=== PATIENT | male | born 1950 | race Caucasian/White ===

== ENCOUNTER → 2020-03-26 11:58 | Outpatient (BNVA) | payer MEDICARE, OTHER, SELFPAY | PROVIDERS: PCP Nurse Practitioner; Visit Provider Nurse Practitioner | DX: E11.65 Type 2 diabetes mellitus with hyperglycemia (principal); I10 Essential (primary) hypertension | CPT/HCPCS: 80053; 80061; 81000; 82044; 83036 ==

== ENCOUNTER 2020-09-06 09:45 | Outpatient (CLI) | payer MEDICARE, OTHER, SELFPAY ==
--- NOTE | 2020-09-06 09:30 | USCV_ITS ---
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
== END 2020-09-06 09:46 | disposition home or self-care (01) ==
LOC: RAD 09:51
PROVIDERS: PCP Nurse Practitioner; Visit Provider Internal Medicine
DX: R29.898 Other symptoms and signs involving the musculoskeletal system (principal)
CPT/HCPCS: 93922

== ENCOUNTER → 2020-09-27 09:11 | Outpatient (BNVA) | payer MEDICARE, OTHER, SELFPAY | PROVIDERS: PCP Nurse Practitioner; Visit Provider Nurse Practitioner | DX: E11.65 Type 2 diabetes mellitus with hyperglycemia (principal) | CPT/HCPCS: 80053; 80061; 83036; 84443 ==

== ENCOUNTER → 2021-02-08 08:37 | Outpatient (BNVA) | payer MEDICARE, OTHER, SELFPAY | PROVIDERS: PCP Nurse Practitioner; Visit Provider Nurse Practitioner | DX: E11.65 Type 2 diabetes mellitus with hyperglycemia (principal); E55.9 Vitamin D deficiency, unspecified; I10 Essential (primary) hypertension; E66.01 Morbid (severe) obesity due to excess calories | CPT/HCPCS: 80053; 80061; 82043; 82306; 82607; 83036 ==

== ENCOUNTER → 2021-05-30 12:03 | Outpatient (BNVA) | payer MEDICARE, OTHER, SELFPAY | PROVIDERS: PCP Nurse Practitioner; Visit Provider Nurse Practitioner Family | DX: Z20.822 Contact with and (suspected) exposure to COVID-19 (principal); B02.9 Zoster without complications | CPT/HCPCS: 87635 ==

== ENCOUNTER 2021-06-10 14:35 | Outpatient (CLI) | payer MEDICARE, OTHER, SELFPAY ==
--- NOTE | 2021-06-10 14:49 | XR_ITS ---
WS: [id number] Lumbar spine, 3 views, 06/10/2021 Clinical Data: M54.5 - Low back pain Comparison: None. Findings: No compression fractures are seen. There is bilateral L5-S1 spondylolysis with a 1.7 cm spondylolisth esis. There is degenerative disc narrowing at L5-S1. The transverse processes and SI joints are kiki l. XR/XR lumbar spine 2-3V* [id number] Impression: 1. Bilateral L5-S1 spondylolysis with a 1.7 cm spondylolisthesis. 2. Degenerative disc narrowing at L5-S1.
--- NOTE | 2021-06-10 14:49 | XR_ITS ---
WS: [id number] Thoracic spine, 3 views, 06/10/2021 Clinical Data: M54.5 - Low back pain Comparison: None. Findings: No compression fractures are seen. The disc heights are normal. Osteoarthritic changes of the thoracic spine are moderate. The paravertebral regions are normal. XR/XR thoracic spine 3V* [id number] Impression: Moderate osteoarthritis of the thoracic vertebral bodies.
== END 2021-06-10 14:36 | disposition home or self-care (01) ==
PROVIDERS: PCP Nurse Practitioner; Visit Provider Nurse Practitioner
DX: M79.605 Pain in left leg (principal); M47.814 Spondylosis without myelopathy or radiculopathy, thoracic region; M43.17 Spondylolisthesis, lumbosacral region
CPT/HCPCS: 72072; 72100

== ENCOUNTER → 2021-06-23 15:44 | Outpatient (BNVA) | payer MEDICARE, OTHER, SELFPAY | PROVIDERS: PCP Nurse Practitioner; Referring Provider Nurse Practitioner; Visit Provider Orthopaedic Surgery | DX: M51.36 Other intervertebral disc degeneration, lumbar region (principal); M54.9 Dorsalgia, unspecified; M48.062 Spinal stenosis, lumbar region with neurogenic claudication | CPT/HCPCS: 72120 ==

== ENCOUNTER 2021-07-01 11:27 | Outpatient (CLI) | payer MEDICARE, OTHER, SELFPAY ==
--- NOTE | 2021-07-01 11:45 | MR_ITS ---
WS: [id number] MRI LUMBAR SPINE NONCONTRAST HISTORY: Lifting injury 2 weeks ago. Low back pain radiating down LEFT leg. COMPARISON: None available. TECHNIQUE: Sagittal and axial multisequence imaging is submitted. Increase in the thoracic kyphosis. Disc bulges and protrusions throughout the thoracic spine. Disc pr otrusions at T6-7 and T7-8 contact the ventral thoracic cord. L5 anterolisthesis by 8 mm with bilateral pars defects at L5. Moderate degenerative disc space narrow ing at L5-S1. The remaining disc spaces are well preserved. No acute fractures or marrow edema. Conus terminates normally at L1-2 disc level. L1-L2: Normal. L2-L3: Mild bilateral facet joint arthritis, LEFT greater than RIGHT with no stenosis. L3-L4: Mild annular disc bulging with no focal protrusion. Bilateral ligamentum flavum disease and fa cet arthritis. Fluid in the facet joints bilaterally. Very mild narrowing of the LEFT subarticular re cess and LEFT foramen. Fluid in the facet joints bilaterally. L4-L5: Mild annular disc bulging and osteophytic ridging. Bilateral facet joint arthritis and ligamen bambi flavum hypertrophy. Fluid in the facet joints bilaterally. Mild bilateral foraminal narrowing. L5-S1: Disc and facet joint arthropathies encroaching into the thecal sac and lateral recesses. There is disc and osteophyte material contacting the thecal sac and the S1 nerve roots bilaterally but gre atest on the RIGHT. Mild central stenosis. Bilateral lateral recess stenosis with encroachment upon t he S1 nerve root and moderate bilateral subarticular recess and foraminal stenosis, LEFT greater than RIGHT. MR/MR lumbar spine wo con* [id number] IMPRESSION: 1. Grade 1 spondylolisthesis with spondylolysis at L5. 2. Disc and osteophyte encroachment upon the S1 nerve roots bilaterally with m ild central stenosis. 3. Moderate bilateral subarticular recess and foraminal stenosis at L5-S1, LEF T greater than RIGHT with disc and osteophyte encroachment upon the L5 and S1 n erve roots. 4. Mild LEFT subarticular recess and LEFT foraminal stenosis at L3-4. 5. Mild bilateral foraminal narrowing at L4-5.
== END 2021-07-01 11:28 | disposition home or self-care (01) ==
LOC: RADSHAW 11:33
PROVIDERS: PCP Nurse Practitioner; Visit Provider Orthopaedic Surgery
DX: M51.36 Other intervertebral disc degeneration, lumbar region (principal); M54.5 Low back pain; M54.16 Radiculopathy, lumbar region; M43.16 Spondylolisthesis, lumbar region; M47.816 Spondylosis without myelopathy or radiculopathy, lumbar region; M25.78 Osteophyte, vertebrae; M48.07 Spinal stenosis, lumbosacral region; M48.061 Spinal stenosis, lumbar region without neurogenic claudication
CPT/HCPCS: 72148

== ENCOUNTER → 2021-09-26 08:14 | Outpatient (BNVA) | payer MEDICARE, OTHER, SELFPAY | PROVIDERS: PCP Nurse Practitioner; Referring Provider Orthopaedic Surgery; Visit Provider Specialist | DX: E11.44 Type 2 diabetes mellitus with diabetic amyotrophy (principal); E11.42 Type 2 diabetes mellitus with diabetic polyneuropathy; G57.22 Lesion of femoral nerve, left lower limb; M48.062 Spinal stenosis, lumbar region with neurogenic claudication | CPT/HCPCS: 95886; 95909; 99204; 99214 ==

== ENCOUNTER → 2021-09-27 09:12 | Outpatient (BNVA) | payer MEDICARE, OTHER, SELFPAY | PROVIDERS: PCP Nurse Practitioner; Visit Provider Nurse Practitioner | DX: E11.65 Type 2 diabetes mellitus with hyperglycemia (principal) | CPT/HCPCS: 80053; 80061; 82043; 83036 ==

== ENCOUNTER 2021-11-25 09:23 | Outpatient (RCR) | payer MEDICARE, OTHER, SELFPAY | END 2021-11-28 23:59 | disposition home or self-care (01) | LOC: APT 09:23 | PROVIDERS: PCP Nurse Practitioner; Visit Provider Specialist | DX: E11.44 Type 2 diabetes mellitus with diabetic amyotrophy (principal) | CPT/HCPCS: 97163 ==

== ENCOUNTER → 2021-11-28 09:05 | Outpatient (BNVA) | payer MEDICARE, OTHER, SELFPAY | PROVIDERS: PCP Nurse Practitioner; Visit Provider Specialist | DX: G95.89 Other specified diseases of spinal cord (principal); B02.8 Zoster with other complications; G60.9 Hereditary and idiopathic neuropathy, unspecified | CPT/HCPCS: 99213 ==

== ENCOUNTER 2021-11-29 06:00 | Outpatient (RCR) | payer MEDICARE, OTHER, SELFPAY | END 2021-12-26 23:59 | disposition home or self-care (01) | LOC: APT 06:00 | PROVIDERS: PCP Nurse Practitioner; Visit Provider Specialist | DX: E11.44 Type 2 diabetes mellitus with diabetic amyotrophy (principal) | CPT/HCPCS: 97110; 97140 ==

== ENCOUNTER 2021-12-27 06:00 | Outpatient (RCR) | payer MEDICARE, OTHER, SELFPAY | END 2022-01-06 23:59 | disposition home or self-care (01) | LOC: APT 06:00 | PROVIDERS: PCP Nurse Practitioner; Visit Provider Specialist | DX: E11.44 Type 2 diabetes mellitus with diabetic amyotrophy (principal) | CPT/HCPCS: 97110; 97140 ==

== ENCOUNTER → 2022-02-22 13:31 | Outpatient (BNVA) | payer MEDICARE, OTHER, SELFPAY | PROVIDERS: PCP Nurse Practitioner; Visit Provider Internal Medicine Cardiovascular Disease | DX: I10 Essential (primary) hypertension (principal); Z87.891 Personal history of nicotine dependence | CPT/HCPCS: 99213; 99214 ==

== ENCOUNTER → 2022-03-01 10:27 | Outpatient (BNVA) | payer MEDICARE, OTHER, SELFPAY | PROVIDERS: PCP Nurse Practitioner; Visit Provider Specialist | DX: G60.9 Hereditary and idiopathic neuropathy, unspecified (principal); B02.8 Zoster with other complications; G95.9 Disease of spinal cord, unspecified; Z87.891 Personal history of nicotine dependence | CPT/HCPCS: 99214 ==

== ENCOUNTER 2022-03-21 09:00 | Outpatient (CLI) | payer MEDICARE, OTHER, SELFPAY ==
--- NOTE | 2022-03-21 09:09 | MR_ITS ---
WS: [id number] MRI LUMBAR SPINE WITH CONTRAST TECHNIQUE: Sagittal T1, T2 and STIR imaging. Axial T1 and T2 imaging. Post gadolinium imaging was obt ained. CLINICAL INFORMATION: G95.9 - Disease of spinal cord, unspecified COMPARISON: MRI July 01, 2021 FINDINGS: Grade 1 anterolisthesis L5 on S1 with chronic spondylolysis. Grade 1 anterolisthesis L5 on S1 measuri ng 8 mm not significantly changed. Disc space narrowing T11-T12 in the lower thoracic spine with endp late degenerative changes. This is similar to previous. No high-grade central canal stenosis. L1-L2: Normal. L2-L3: No significant disc bulging. Moderate facet arthropathy. Spinal canal and foramen are patent. L3-L4: Mild annular bulging. Moderate facet arthropathy. Spinal canal is patent. Mild RIGHT foraminal narrowing with a tiny RIGHT foraminal protrusion. L4-L5: Mild annular bulging. Slight effacement of ventral thecal sac. Moderate facet arthropathy. For amen are patent. L5-S1: Grade 1 anterolisthesis L5 on S1 with chronic spondylolysis. Moderate bilateral foraminal narr owing with impingement on the exiting L5 nerve roots LEFT greater than RIGHT. This is similar to prev ious. Mild central canal stenosis seen on the life claims examiner imaging of the cervical spine C3-C6. MR/MR lumbar spine wo/w con [id number] IMPRESSION: 1. Mild lumbar curve. No acute compression. No high-grade central canal stenos is. 2. Grade 1 anterolisthesis L5 on S1 measuring 8 mm not significantly changed c ompared to previous with chronic spondylolysis. 3. Moderate bilateral L5-S1 bony foraminal narrowing LEFT greater than RIGHT w ith contact of the exiting LEFT greater than RIGHT L5 nerve roots. 4. Tiny RIGHT foraminal protrusion L3-L4 with mild RIGHT foraminal narrowing. 5. Moderate facet arthropathy L3-L4 and L4-L5. 6. No other significant changes compared to previous.
[2022-03-21] MEDS: gadobenate dimeglumine 20 mL vial IV (17:02)
== END 2022-03-21 09:01 | disposition home or self-care (01) ==
LOC: RAD 09:01
PROVIDERS: PCP Nurse Practitioner; Visit Provider Specialist
DX: G95.9 Disease of spinal cord, unspecified (principal); M48.062 Spinal stenosis, lumbar region with neurogenic claudication; M51.36 Other intervertebral disc degeneration, lumbar region; M48.07 Spinal stenosis, lumbosacral region; M51.26 Other intervertebral disc displacement, lumbar region; M47.816 Spondylosis without myelopathy or radiculopathy, lumbar region
CPT/HCPCS: 72158

== ENCOUNTER → 2022-05-02 08:42 | Outpatient (BNVA) | payer MEDICARE, OTHER, SELFPAY | PROVIDERS: PCP Nurse Practitioner; Visit Provider Nurse Practitioner | DX: E11.65 Type 2 diabetes mellitus with hyperglycemia (principal); I10 Essential (primary) hypertension; M51.36 Other intervertebral disc degeneration, lumbar region; E11.44 Type 2 diabetes mellitus with diabetic amyotrophy | CPT/HCPCS: 80053; 80061; 83036 ==

== ENCOUNTER → 2022-08-03 13:52 | Outpatient (BNVA) | payer MEDICARE, OTHER, SELFPAY | PROVIDERS: PCP Nurse Practitioner; Visit Provider Internal Medicine | DX: I10 Essential (primary) hypertension (principal); G60.9 Hereditary and idiopathic neuropathy, unspecified; B02.8 Zoster with other complications; E66.01 Morbid (severe) obesity due to excess calories; Z68.39 Body mass index [BMI] 39.0-39.9, adult; E11.65 Type 2 diabetes mellitus with hyperglycemia; Z79.84 Long term (current) use of oral hypoglycemic drugs; Z87.891 Personal history of nicotine dependence | CPT/HCPCS: 99213; 99214 ==

== ENCOUNTER → 2022-09-04 09:54 | Outpatient (BNVA) | payer MEDICARE, OTHER, SELFPAY | PROVIDERS: PCP Nurse Practitioner; Visit Provider Specialist | DX: G60.9 Hereditary and idiopathic neuropathy, unspecified (principal); M48.062 Spinal stenosis, lumbar region with neurogenic claudication; M51.36 Other intervertebral disc degeneration, lumbar region; M43.17 Spondylolisthesis, lumbosacral region; M21.969 Unspecified acquired deformity of unspecified lower leg; E11.9 Type 2 diabetes mellitus without complications | CPT/HCPCS: 99214 ==

== ENCOUNTER → 2022-10-04 08:16 | Outpatient (BNVA) | payer MEDICARE, OTHER, SELFPAY | PROVIDERS: PCP Nurse Practitioner; Visit Provider Nurse Practitioner | DX: E11.65 Type 2 diabetes mellitus with hyperglycemia (principal); I10 Essential (primary) hypertension | CPT/HCPCS: 80053; 80061; 83036; 84443 ==

== ENCOUNTER → 2022-12-19 08:23 | Outpatient (BNVA) | payer MEDICARE, OTHER, SELFPAY | PROVIDERS: PCP Nurse Practitioner; Visit Provider Podiatrist Foot & Ankle Surgery | DX: E11.42 Type 2 diabetes mellitus with diabetic polyneuropathy (principal); M20.41 Other hammer toe(s) (acquired), right foot; M20.42 Other hammer toe(s) (acquired), left foot; L84 Corns and callosities; M20.31 Hallux varus (acquired), right foot; M20.32 Hallux varus (acquired), left foot; B35.1 Tinea unguium; M24.573 Contracture, unspecified ankle | CPT/HCPCS: 11056; 11721 ==

== ENCOUNTER → 2023-03-06 08:15 | Outpatient (BNVA) | payer MEDICARE, OTHER, SELFPAY | PROVIDERS: PCP Nurse Practitioner; Visit Provider Podiatrist Foot & Ankle Surgery | DX: E11.42 Type 2 diabetes mellitus with diabetic polyneuropathy (principal); L84 Corns and callosities; B35.1 Tinea unguium; E11.44 Type 2 diabetes mellitus with diabetic amyotrophy; M20.31 Hallux varus (acquired), right foot; M20.32 Hallux varus (acquired), left foot; M20.41 Other hammer toe(s) (acquired), right foot; M20.42 Other hammer toe(s) (acquired), left foot; S90.861A Insect bite (nonvenomous), right foot, initial encounter; W57.XXXA Bitten or stung by nonvenomous insect and other nonvenomous arthropods, initial encounter; M24.572 Contracture, left ankle | CPT/HCPCS: 11056; 11721 ==

== ENCOUNTER → 2023-04-05 08:45 | Outpatient (BNVA) | payer MEDICARE, OTHER, SELFPAY | PROVIDERS: PCP Nurse Practitioner; Visit Provider Nurse Practitioner | DX: E11.65 Type 2 diabetes mellitus with hyperglycemia (principal); I10 Essential (primary) hypertension; E55.9 Vitamin D deficiency, unspecified; S90.861A Insect bite (nonvenomous), right foot, initial encounter; W57.XXXA Bitten or stung by nonvenomous insect and other nonvenomous arthropods, initial encounter; M51.36 Other intervertebral disc degeneration, lumbar region; E11.44 Type 2 diabetes mellitus with diabetic amyotrophy; E11.40 Type 2 diabetes mellitus with diabetic neuropathy, unspecified | CPT/HCPCS: 80053; 80061; 81000; 82043; 82306; 82607; 83036; 85025; 86618; 86666; 86757 ==

== ENCOUNTER → 2023-05-03 13:12 | Outpatient (BNVA) | payer MEDICARE, OTHER, SELFPAY | PROVIDERS: PCP Nurse Practitioner; Visit Provider Internal Medicine | DX: G60.9 Hereditary and idiopathic neuropathy, unspecified (principal); B02.8 Zoster with other complications; E66.01 Morbid (severe) obesity due to excess calories; Z68.41 Body mass index [BMI] 40.0-44.9, adult; E11.65 Type 2 diabetes mellitus with hyperglycemia; Z79.84 Long term (current) use of oral hypoglycemic drugs; I10 Essential (primary) hypertension | CPT/HCPCS: 99214 ==

== ENCOUNTER → 2023-05-22 08:39 | Outpatient (BNVA) | payer MEDICARE, OTHER, SELFPAY | PROVIDERS: PCP Nurse Practitioner; Visit Provider Podiatrist Foot & Ankle Surgery | DX: E11.44 Type 2 diabetes mellitus with diabetic amyotrophy (principal); B35.1 Tinea unguium; L84 Corns and callosities; M20.41 Other hammer toe(s) (acquired), right foot; M20.42 Other hammer toe(s) (acquired), left foot; M20.31 Hallux varus (acquired), right foot; M20.32 Hallux varus (acquired), left foot; M24.573 Contracture, unspecified ankle | CPT/HCPCS: 11055; 11721 ==

== ENCOUNTER → 2023-07-24 10:02 | Outpatient (BNVA) | payer MEDICARE, OTHER, SELFPAY | PROVIDERS: PCP Nurse Practitioner; Visit Provider Podiatrist Foot & Ankle Surgery | DX: E11.44 Type 2 diabetes mellitus with diabetic amyotrophy (principal); M20.41 Other hammer toe(s) (acquired), right foot; M20.42 Other hammer toe(s) (acquired), left foot; M20.31 Hallux varus (acquired), right foot; M20.32 Hallux varus (acquired), left foot; B35.1 Tinea unguium; L97.512 Non-pressure chronic ulcer of other part of right foot with fat layer exposed; E11.621 Type 2 diabetes mellitus with foot ulcer | CPT/HCPCS: 11042; 11721 ==

== ENCOUNTER → 2023-08-08 13:25 | Outpatient (BNVA) | payer MEDICARE, OTHER, SELFPAY | PROVIDERS: PCP Nurse Practitioner; Visit Provider Podiatrist Foot & Ankle Surgery | DX: E11.44 Type 2 diabetes mellitus with diabetic amyotrophy (principal); L97.522 Non-pressure chronic ulcer of other part of left foot with fat layer exposed; M20.41 Other hammer toe(s) (acquired), right foot; M20.42 Other hammer toe(s) (acquired), left foot; E11.621 Type 2 diabetes mellitus with foot ulcer | CPT/HCPCS: 99213 ==

== ENCOUNTER → 2023-08-22 11:27 | Outpatient (BNVA) | payer MEDICARE, OTHER, SELFPAY | PROVIDERS: PCP Nurse Practitioner; Visit Provider Podiatrist Foot & Ankle Surgery | DX: E11.44 Type 2 diabetes mellitus with diabetic amyotrophy (principal); L97.522 Non-pressure chronic ulcer of other part of left foot with fat layer exposed; E11.621 Type 2 diabetes mellitus with foot ulcer | CPT/HCPCS: 99213 ==

== ENCOUNTER → 2023-10-10 10:46 | Outpatient (BNVA) | payer MEDICARE, OTHER, SELFPAY | PROVIDERS: PCP Nurse Practitioner; Visit Provider Podiatrist Foot & Ankle Surgery | DX: E11.44 Type 2 diabetes mellitus with diabetic amyotrophy (principal); L60.3 Nail dystrophy; L84 Corns and callosities; L97.522 Non-pressure chronic ulcer of other part of left foot with fat layer exposed; E11.621 Type 2 diabetes mellitus with foot ulcer | CPT/HCPCS: 11055; 11721 ==

== ENCOUNTER → 2023-11-15 13:26 | Outpatient (BNVA) | payer MEDICARE, OTHER, SELFPAY | PROVIDERS: PCP Nurse Practitioner; Visit Provider Nurse Practitioner | DX: M51.36 Other intervertebral disc degeneration, lumbar region (principal); E11.65 Type 2 diabetes mellitus with hyperglycemia; I10 Essential (primary) hypertension; E55.9 Vitamin D deficiency, unspecified; R41.3 Other amnesia; E11.44 Type 2 diabetes mellitus with diabetic amyotrophy; R42 Dizziness and giddiness | CPT/HCPCS: 80053; 80061; 82306; 82607; 83036; 84443; 85025 ==

== ENCOUNTER 2023-12-03 08:39 | Outpatient (CLI) | payer MEDICARE, OTHER, SELFPAY ==
--- NOTE | 2023-12-03 08:30 | CT_ITS ---
WS: [id number] CT HEAD NONCONTRAST HISTORY: R41.3 - Other amnesia TECHNIQUE: Contiguous axial imaging performed through the brain in 2.5 mm imaging. Bone and soft tiss ue windows. Sagittal and coronal reformats reviewed. All CT scans at [facility] use at least one of these dose optimization techniques: automated exposure control; mA and/or kV adjustment per pa tient size (includes targeted exams where dose is matched to clinical indication); or iterative recon struction. DLP: 1241.08 mGy.cm COMPARISON: None available. No acute intracranial hemorrhage, midline shift or mass effect. Mild bilateral symmetric atrophy and small vessel ischemic disease. There are a few small lacunar inf arcts versus perivascular spaces along the basal ganglia. Mild bilateral cerebellar atrophy. Ventricles: Normal size with no hydrocephalus. Paranasal sinuses: As visualized are clear. Mastoid air cells: Well pneumatized. Calvarium and scalp: Skull is intact with no soft tissue edema or swelling. IMPRESSION: 1. No acute intracranial hemorrhage or edema. 2. Mild symmetric cerebral and cerebellar atrophy. Mild small vessel ischemic disease. 3. No ventriculomegaly.
== END 2023-12-03 08:40 | disposition home or self-care (01) ==
LOC: RAD 08:39
PROVIDERS: PCP Nurse Practitioner; Visit Provider Nurse Practitioner
DX: R41.3 Other amnesia (principal); I67.89 Other cerebrovascular disease
CPT/HCPCS: 70450

== ENCOUNTER → 2024-01-31 13:54 | Outpatient (BNVA) | payer MEDICARE, OTHER, SELFPAY | PROVIDERS: PCP Nurse Practitioner; Visit Provider Internal Medicine | DX: G60.9 Hereditary and idiopathic neuropathy, unspecified (principal); B02.8 Zoster with other complications; E66.01 Morbid (severe) obesity due to excess calories; E11.65 Type 2 diabetes mellitus with hyperglycemia; I10 Essential (primary) hypertension; Z68.39 Body mass index [BMI] 39.0-39.9, adult | CPT/HCPCS: 99214 ==

== ENCOUNTER → 2024-02-05 08:29 | Outpatient (BNVA) | payer MEDICARE, OTHER, SELFPAY | PROVIDERS: PCP Nurse Practitioner; Visit Provider Nurse Practitioner | DX: E11.65 Type 2 diabetes mellitus with hyperglycemia (principal); I10 Essential (primary) hypertension | CPT/HCPCS: 80053; 83036; 84439; 84443; 84481 ==

== ENCOUNTER → 2024-02-12 08:59 | Outpatient (BNVA) | payer MEDICARE, OTHER, SELFPAY | PROVIDERS: PCP Nurse Practitioner; Visit Provider Podiatrist Foot & Ankle Surgery | DX: E11.44 Type 2 diabetes mellitus with diabetic amyotrophy (principal); L60.3 Nail dystrophy; L84 Corns and callosities | CPT/HCPCS: 11056; 11721 ==

== ENCOUNTER → 2024-05-13 09:31 | Outpatient (BNVA) | payer MEDICARE, OTHER, SELFPAY | PROVIDERS: PCP Nurse Practitioner; Visit Provider Podiatrist Foot & Ankle Surgery | DX: E11.44 Type 2 diabetes mellitus with diabetic amyotrophy (principal); L60.3 Nail dystrophy; L84 Corns and callosities | CPT/HCPCS: 11056; 11721 ==

== ENCOUNTER → 2024-07-24 15:22 | Outpatient (BNVA) | payer MEDICARE, OTHER, SELFPAY | PROVIDERS: PCP Nurse Practitioner; Visit Provider Nurse Practitioner | DX: E11.44 Type 2 diabetes mellitus with diabetic amyotrophy (principal); M21.272 Flexion deformity, left ankle and toes; M77.52 Other enthesopathy of left foot and ankle | CPT/HCPCS: 73630; 80053; 80061; 83036; 85025 ==

== ENCOUNTER → 2024-08-12 09:21 | Outpatient (BNVA) | payer MEDICARE, OTHER, SELFPAY | PROVIDERS: PCP Nurse Practitioner; Visit Provider Podiatrist Foot & Ankle Surgery | DX: E11.44 Type 2 diabetes mellitus with diabetic amyotrophy (principal); L60.3 Nail dystrophy; L84 Corns and callosities; E11.621 Type 2 diabetes mellitus with foot ulcer; L97.522 Non-pressure chronic ulcer of other part of left foot with fat layer exposed | CPT/HCPCS: 11042; 11055; 11721 ==

== ENCOUNTER → 2024-08-25 09:30 | Outpatient (BNVA) | payer MEDICARE, OTHER, SELFPAY | PROVIDERS: PCP Nurse Practitioner; Visit Provider Podiatrist Foot & Ankle Surgery | DX: E11.44 Type 2 diabetes mellitus with diabetic amyotrophy (principal); L60.3 Nail dystrophy; L84 Corns and callosities; E11.621 Type 2 diabetes mellitus with foot ulcer; L97.522 Non-pressure chronic ulcer of other part of left foot with fat layer exposed | CPT/HCPCS: 99213 ==

== ENCOUNTER → 2024-10-13 09:15 | Outpatient (BNVA) | payer MEDICARE, OTHER, SELFPAY | PROVIDERS: PCP Nurse Practitioner; Visit Provider Podiatrist Foot & Ankle Surgery | DX: L97.512 Non-pressure chronic ulcer of other part of right foot with fat layer exposed (principal); E11.8 Type 2 diabetes mellitus with unspecified complications; E11.44 Type 2 diabetes mellitus with diabetic amyotrophy; L60.3 Nail dystrophy; M20.41 Other hammer toe(s) (acquired), right foot; M20.42 Other hammer toe(s) (acquired), left foot; M24.575 Contracture, left foot; M20.31 Hallux varus (acquired), right foot; M20.32 Hallux varus (acquired), left foot; M24.574 Contracture, right foot; E11.621 Type 2 diabetes mellitus with foot ulcer | CPT/HCPCS: 99213 ==

== ENCOUNTER 2024-10-23 09:50 | Outpatient (CLI) | payer MEDICARE, OTHER, SELFPAY ==
--- NOTE | 2024-10-23 10:15 | USCV_ITS ---
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 Normal resting KHUSHBOO and TBI on the left side. 2. Abnormal resting KHUSHBOO and TBI on the right side suggestive of moderate peripheral arterial disease Compared to the study from 09/06/2020 there is a significant decline in the resting KHUSHBOO and TBI on the right side Dr Michael Ornelas MD [facility] (Electronically Signed) Final Date: 23 October 2024 15:17 S
== END 2024-10-23 09:51 | disposition home or self-care (01) ==
PROVIDERS: PCP Nurse Practitioner; Visit Provider Podiatrist Foot & Ankle Surgery
DX: I70.235 Atherosclerosis of native arteries of right leg with ulceration of other part of foot (principal); L97.512 Non-pressure chronic ulcer of other part of right foot with fat layer exposed
CPT/HCPCS: 93922

== ENCOUNTER → 2024-11-03 11:00 | Outpatient (BNVA) | payer MEDICARE, OTHER, SELFPAY | PROVIDERS: PCP Nurse Practitioner; Visit Provider Podiatrist Foot & Ankle Surgery | DX: E11.44 Type 2 diabetes mellitus with diabetic amyotrophy (principal); L60.3 Nail dystrophy; M20.41 Other hammer toe(s) (acquired), right foot; M20.42 Other hammer toe(s) (acquired), left foot; M24.575 Contracture, left foot; M20.31 Hallux varus (acquired), right foot; M20.32 Hallux varus (acquired), left foot; M24.574 Contracture, right foot | CPT/HCPCS: 99213 ==

== ENCOUNTER → 2024-11-13 11:10 | Outpatient (BNVA) | payer MEDICARE, OTHER, SELFPAY | PROVIDERS: PCP Nurse Practitioner; Visit Provider Podiatrist Foot & Ankle Surgery | DX: E11.44 Type 2 diabetes mellitus with diabetic amyotrophy (principal); L60.3 Nail dystrophy; M20.41 Other hammer toe(s) (acquired), right foot; M20.42 Other hammer toe(s) (acquired), left foot; M24.575 Contracture, left foot; M20.31 Hallux varus (acquired), right foot; M20.32 Hallux varus (acquired), left foot; M24.574 Contracture, right foot | CPT/HCPCS: 99213 ==

== ENCOUNTER → 2024-11-26 15:00 | Outpatient (BNVA) | payer MEDICARE, OTHER, SELFPAY | PROVIDERS: PCP Nurse Practitioner; Visit Provider Nurse Practitioner | DX: E11.9 Type 2 diabetes mellitus without complications (principal) | CPT/HCPCS: 80053; 83036 ==

== ENCOUNTER → 2024-11-27 11:18 | Outpatient (BNVA) | payer MEDICARE, OTHER, SELFPAY | PROVIDERS: PCP Nurse Practitioner; Visit Provider Podiatrist Foot & Ankle Surgery | DX: E11.44 Type 2 diabetes mellitus with diabetic amyotrophy (principal); L60.3 Nail dystrophy; M20.41 Other hammer toe(s) (acquired), right foot; M20.42 Other hammer toe(s) (acquired), left foot; M24.575 Contracture, left foot; M20.31 Hallux varus (acquired), right foot; M20.32 Hallux varus (acquired), left foot; M24.574 Contracture, right foot | CPT/HCPCS: 99213 ==

== ENCOUNTER → 2024-12-15 11:14 | Outpatient (BNVA) | payer MEDICARE, OTHER, SELFPAY | PROVIDERS: PCP Nurse Practitioner; Visit Provider Podiatrist Foot & Ankle Surgery | DX: E11.44 Type 2 diabetes mellitus with diabetic amyotrophy (principal); L84 Corns and callosities; E11.621 Type 2 diabetes mellitus with foot ulcer; L97.512 Non-pressure chronic ulcer of other part of right foot with fat layer exposed; M20.41 Other hammer toe(s) (acquired), right foot; M20.42 Other hammer toe(s) (acquired), left foot; M24.575 Contracture, left foot; M20.31 Hallux varus (acquired), right foot; M20.32 Hallux varus (acquired), left foot; M24.574 Contracture, right foot | CPT/HCPCS: 11042; 11056 ==

== ENCOUNTER → 2024-12-30 09:29 | Outpatient (BNVA) | payer MEDICARE, OTHER, SELFPAY | PROVIDERS: PCP Nurse Practitioner; Visit Provider Student in an Organized Health Care Education/Training Program | DX: M25.562 Pain in left knee (principal); M17.12 Unilateral primary osteoarthritis, left knee | CPT/HCPCS: 73560; 73565; 99204 ==

== ENCOUNTER 2024-12-30 10:42 | Outpatient (CLI) | payer MEDICARE, OTHER, SELFPAY | END 2024-12-30 10:43 | disposition home or self-care (01) | LOC: SPT 10:43 | PROVIDERS: PCP Nurse Practitioner; Visit Provider Podiatrist Foot & Ankle Surgery | DX: Z46.89 Encounter for fitting and adjustment of other specified devices (principal); M17.12 Unilateral primary osteoarthritis, left knee | CPT/HCPCS: 97760; L1851 ==

== ENCOUNTER → 2025-01-06 09:17 | Outpatient (BNVA) | payer MEDICARE, OTHER, SELFPAY | PROVIDERS: PCP Nurse Practitioner; Visit Provider Podiatrist Foot & Ankle Surgery | DX: E11.44 Type 2 diabetes mellitus with diabetic amyotrophy (principal); M20.41 Other hammer toe(s) (acquired), right foot; M20.42 Other hammer toe(s) (acquired), left foot; M24.575 Contracture, left foot; M20.31 Hallux varus (acquired), right foot; M20.32 Hallux varus (acquired), left foot; M24.574 Contracture, right foot; L84 Corns and callosities; E11.621 Type 2 diabetes mellitus with foot ulcer; L97.512 Non-pressure chronic ulcer of other part of right foot with fat layer exposed | CPT/HCPCS: 99213 ==

== ENCOUNTER → 2025-01-19 10:28 | Outpatient (BNVA) | payer MEDICARE, OTHER, SELFPAY | PROVIDERS: PCP Nurse Practitioner; Visit Provider Podiatrist Foot & Ankle Surgery | DX: E11.44 Type 2 diabetes mellitus with diabetic amyotrophy (principal); M20.41 Other hammer toe(s) (acquired), right foot; M20.42 Other hammer toe(s) (acquired), left foot; M24.575 Contracture, left foot; M20.31 Hallux varus (acquired), right foot; M20.32 Hallux varus (acquired), left foot; M24.574 Contracture, right foot; L84 Corns and callosities; L97.512 Non-pressure chronic ulcer of other part of right foot with fat layer exposed; E11.621 Type 2 diabetes mellitus with foot ulcer | CPT/HCPCS: 99213 ==

== ENCOUNTER → 2025-01-23 09:38 | Outpatient (BNVA) | payer MEDICARE, OTHER, SELFPAY | PROVIDERS: PCP Nurse Practitioner; Visit Provider Physician Assistant | DX: M17.12 Unilateral primary osteoarthritis, left knee (principal) | CPT/HCPCS: 99213 ==

== ENCOUNTER → 2025-01-29 12:53 | Outpatient (BNVA) | payer MEDICARE, OTHER, SELFPAY | PROVIDERS: PCP Nurse Practitioner; Visit Provider Internal Medicine | DX: I10 Essential (primary) hypertension (principal); E66.812 Obesity, class 2; Z68.38 Body mass index [BMI] 38.0-38.9, adult; E11.65 Type 2 diabetes mellitus with hyperglycemia; G60.9 Hereditary and idiopathic neuropathy, unspecified; Z87.891 Personal history of nicotine dependence | CPT/HCPCS: 99213 ==

== ENCOUNTER → 2025-02-02 08:57 | Outpatient (BNVA) | payer MEDICARE, OTHER, SELFPAY | PROVIDERS: PCP Nurse Practitioner; Visit Provider Podiatrist Foot & Ankle Surgery | DX: E11.621 Type 2 diabetes mellitus with foot ulcer (principal); L97.522 Non-pressure chronic ulcer of other part of left foot with fat layer exposed; E11.44 Type 2 diabetes mellitus with diabetic amyotrophy; M20.41 Other hammer toe(s) (acquired), right foot; M20.42 Other hammer toe(s) (acquired), left foot; M24.575 Contracture, left foot; M20.31 Hallux varus (acquired), right foot; M20.32 Hallux varus (acquired), left foot; M24.574 Contracture, right foot; L03.116 Cellulitis of left lower limb | CPT/HCPCS: 11042; 99214 ==

== ENCOUNTER → 2025-02-26 10:43 | Outpatient (BNVA) | payer MEDICARE, OTHER, SELFPAY | PROVIDERS: PCP Nurse Practitioner; Visit Provider Podiatrist Foot & Ankle Surgery | DX: E11.44 Type 2 diabetes mellitus with diabetic amyotrophy (principal); M20.41 Other hammer toe(s) (acquired), right foot; M20.42 Other hammer toe(s) (acquired), left foot; M24.575 Contracture, left foot; M20.31 Hallux varus (acquired), right foot; M20.32 Hallux varus (acquired), left foot; M24.574 Contracture, right foot | CPT/HCPCS: 99213 ==

== ENCOUNTER → 2025-04-01 13:48 | Outpatient (BNVA) | payer MEDICARE, OTHER, SELFPAY | PROVIDERS: PCP Nurse Practitioner; Visit Provider Podiatrist Foot & Ankle Surgery | DX: E11.44 Type 2 diabetes mellitus with diabetic amyotrophy (principal); M20.41 Other hammer toe(s) (acquired), right foot; M20.42 Other hammer toe(s) (acquired), left foot; M24.575 Contracture, left foot; M20.31 Hallux varus (acquired), right foot; M20.32 Hallux varus (acquired), left foot; M24.574 Contracture, right foot | CPT/HCPCS: 99213 ==

== ENCOUNTER → 2025-05-13 08:16 | Outpatient (BNVA) | payer MEDICARE, OTHER, SELFPAY | PROVIDERS: PCP Nurse Practitioner; Visit Provider Podiatrist Foot & Ankle Surgery | DX: E11.44 Type 2 diabetes mellitus with diabetic amyotrophy (principal); M20.41 Other hammer toe(s) (acquired), right foot; M20.42 Other hammer toe(s) (acquired), left foot; M24.575 Contracture, left foot; M20.31 Hallux varus (acquired), right foot; M20.32 Hallux varus (acquired), left foot; M24.574 Contracture, right foot | CPT/HCPCS: 99213 ==

== ENCOUNTER → 2025-06-03 10:06 | Outpatient (BNVA) | payer MEDICARE, OTHER, SELFPAY | PROVIDERS: PCP Nurse Practitioner; Visit Provider Nurse Practitioner | DX: E11.65 Type 2 diabetes mellitus with hyperglycemia (principal); I10 Essential (primary) hypertension | CPT/HCPCS: 80053; 80061; 82043; 83036 ==

== ENCOUNTER → 2025-07-08 10:27 | Outpatient (BNVA) | payer MEDICARE, OTHER, SELFPAY | PROVIDERS: PCP Nurse Practitioner; Visit Provider Podiatrist Foot & Ankle Surgery | DX: E11.8 Type 2 diabetes mellitus with unspecified complications (principal); E11.44 Type 2 diabetes mellitus with diabetic amyotrophy; M20.41 Other hammer toe(s) (acquired), right foot; M20.42 Other hammer toe(s) (acquired), left foot; M24.575 Contracture, left foot; M20.31 Hallux varus (acquired), right foot; M20.32 Hallux varus (acquired), left foot; M24.574 Contracture, right foot | CPT/HCPCS: 99213 ==

== ENCOUNTER → 2025-10-13 10:45 | Outpatient (BNVA) | payer MEDICARE, OTHER, SELFPAY | PROVIDERS: PCP Nurse Practitioner; Visit Provider Podiatrist Foot & Ankle Surgery | DX: E11.8 Type 2 diabetes mellitus with unspecified complications (principal); E11.44 Type 2 diabetes mellitus with diabetic amyotrophy; M20.41 Other hammer toe(s) (acquired), right foot; M20.42 Other hammer toe(s) (acquired), left foot; M24.575 Contracture, left foot; M20.31 Hallux varus (acquired), right foot; M20.32 Hallux varus (acquired), left foot; M24.574 Contracture, right foot | CPT/HCPCS: 99213 ==